=== PATIENT | male | born 1985 | race Caucasian/White ===

== ENCOUNTER 2018-05-09 15:23 | Inpatient (IN) | payer MEDICARE, MEDICAID ==
[~2018-05-09] VITALS: Ht 160 cm; Wt 70.6 kg
[~2018-05-09 15:23] MED LIST: DIVA500T52 PO; RISP3 PO
[2018-05-09] MEDS ORDERED: CLON.5 PO (16:36)
[2018-05-09] MEDS ORDERED: OLAN2.5T3 PO (16:36)
[2018-05-09 17:02] LABS: BASOPHILS % (AUTO) 0.9 % (0.0-2.0); EOSINOPHILS % (AUTO) 1.3 % (1.0-6.0); HEMATOCRIT 41.7 % (41-53); HEMOGLOBIN 13.9 g/dL (13.5-17.5); LYMPHOCYTES # (AUTO) 1.9 K/uL (1.0-4.8); LYMPHOCYTES % (AUTO) 20.6 % (22.0-44.0); MEAN CORPUSCULAR HEMOGLOBIN 26.8 pg (26.0-34.0); MEAN CORPUSCULAR HGB CONC 33.3 G/dL (31.0-37.0); MEAN CORPUSCULAR VOLUME 80 fL (80-100); MONOCYTES # (AUTO) 0.6 K/uL (0.1-1.0); MONOCYTES % (AUTO) 6.2 % (2.0-9.0); NEUTROPHILS # (AUTO) 6.7 K/uL (1.8-7.7); PLATELET COUNT (AUTO) 397 K/uL (150-450); RED CELL DISTRIBUTION WIDTH 13.8 % (11.5-14.5)
[2018-05-09 17:13] LABS: ANION GAP 18 mmol/L (8-16); CALCIUM, TOTAL 9.2 mg/dL (8.8-10.5); CARBON DIOXIDE 15 mmol/L (22-29); CHLORIDE 109 mmol/L (98-107); CREATININE 0.74 mg/dL (0.60-1.30); GLOMERULAR FILTR. RATE CALC > 60 mL/min (>60); GLUCOSE,RANDOM 81 mg/dL (70-110); POTASSIUM 3.3 mmol/L (3.5-5.1); SODIUM SERUM 142 mmol/L (136-145); UREA NITROGEN, BLOOD 7 mg/dL (7-18)
[2018-05-09 17:20] LABS: ALANINE AMINOTRANSFERASE 52 U/L (12-78); ALKALINE PHOSPHATASE 91 U/L (46-116); ASPARTATE AMINOTRANSFERASE 25 U/L (15-37); BILIRUBIN,TOTAL 0.7 mg/dL (0.1-1.0); TOTAL PROTEIN, SERUM 7.8 g/dL (6.4-8.2)
[2018-05-09] MEDS ORDERED: HALOPERIDOL LACTATE 5 MG/ML VIAL IM ONE (17:45)
[2018-05-09] MEDS ORDERED: DiphenhydrAMINE HCL 50 MG/ML VIAL IM ONE (17:45)
[2018-05-09] MEDS ORDERED: LORazepam 2 MG/ML VIAL IM ONE (17:45)
[2018-05-09] MEDS ORDERED: ZOLPIDEM TARTRATE 10 MG TABLET PO PRN (18:45)
[2018-05-09] MEDS ORDERED: HALOPERIDOL 5 MG TABLET PO PRN (18:45)
[2018-05-09] MEDS ORDERED: LORazepam 2 MG TABLET PO PRN (18:45)
[2018-05-09] MEDS ORDERED: ALBUTEROL SULFATE HFA 90 MCG/PUFF 8 GM INHALER IH PRN (22:15)
[2018-05-09] MEDS ORDERED: POTASSIUM CHLORIDE 20 MEQ ER TABLET PO ONE (22:15)
[2018-05-09] MEDS ORDERED: MAGNESIUM HYDROXIDE SUSPENSION 30 ML UDCUP PO PRN (22:15)
[2018-05-09] MEDS ORDERED: ONDANSETRON HCL 4 MG TABLET PO PRN (22:15)
[2018-05-09] MEDS ORDERED: LOPERAMIDE HCL 2 MG CAPSULE PO PRN (22:15)
[2018-05-09] MEDS ORDERED: MAG HYDROX/AL HYDROX/SIMETH ES 30 ML SUSPENSION UDCUP PO PRN (22:15)
[2018-05-09] MEDS ORDERED: PETROLATUM,WHITE 71 GM JELLY TP PRN (22:15)
[2018-05-09] MEDS ORDERED: ACETAMINOPHEN 325 MG TABLET PO PRN (22:15)
[2018-05-09] MEDS ORDERED: CloNIDine HCL 0.1 MG TABLET PO PRN (22:15)
[2018-05-09] MEDS ORDERED: DOCUSATE SODIUM 100 MG CAPSULE PO PRN (22:15)
[2018-05-09] MEDS ORDERED: GuaiFENesin/D-METHORPHAN [SUGAR-FREE] 200-20MG/10 ML SYRUP UDCUP PO PRN (22:15)
[2018-05-09] MEDS ORDERED: NICOTINE 14 MG/24 HOUR PATCH TD PRN (22:15)
[2018-05-09] MEDS ORDERED: IBUPROFEN 400 MG TABLET PO PRN (22:15)
[2018-05-10 06:33] VITALS: BP 129/70
[2018-05-10 08:02] VITALS: BP 118/69
[2018-05-10 16:02] VITALS: BP 125/83
[2018-05-10] MEDS: OLANZapine 5 MG TABLET PO SCH (16:52)
[2018-05-11 06:28] VITALS: BP 128/72
[2018-05-11] MEDS: OLANZapine 5 MG TABLET PO SCH ×2 (08:16→16:15)
[2018-05-11] MEDS: FLUoxetine HCL 20 MG CAPSULE PO SCH (08:16)
[2018-05-11 08:36] VITALS: BP 105/78
[2018-05-11 17:26] VITALS: BP 112/72
[2018-05-12 06:21] VITALS: BP 122/80
[2018-05-12 08:34] VITALS: BP 123/73
[2018-05-12] MEDS: FLUoxetine HCL 20 MG CAPSULE PO SCH ×2 (08:57→09:07)
[2018-05-12] MEDS: OLANZapine 5 MG TABLET PO SCH ×4 (08:58→17:11)
[2018-05-12 16:06] VITALS: BP 116/59
[2018-05-13 05:55] VITALS: BP 114/78
[2018-05-13 08:02] VITALS: BP 125/75
[2018-05-13] MEDS: OLANZapine 5 MG TABLET PO SCH (09:00)
[2018-05-13] MEDS: FLUoxetine HCL 20 MG CAPSULE PO SCH (09:00)
[2018-05-13 16:08] VITALS: BP 139/89
[2018-05-13] MEDS: OLANZapine 7.5 MG TABLET PO SCH (17:00)
[2018-05-14 05:46] VITALS: BP 135/92
[2018-05-14 08:04] VITALS: BP 116/71
[2018-05-14] MEDS: OLANZapine 7.5 MG TABLET PO SCH ×2 (08:35→17:00)
[2018-05-14] MEDS: FLUoxetine HCL 20 MG CAPSULE PO SCH (08:35)
[2018-05-14 16:00] VITALS: BP 119/80
[2018-05-15 06:18] VITALS: BP 114/72
[2018-05-15 06:22] VITALS: BP 116/78
[2018-05-15 08:01] VITALS: BP 118/72
[2018-05-15] MEDS: OLANZapine 7.5 MG TABLET PO SCH (08:13)
[2018-05-15] MEDS: FLUoxetine HCL 20 MG CAPSULE PO SCH (08:13)
[2018-05-15] MEDS ORDERED: OLAN7.5T2 PO (12:55)
[2018-05-15] MEDS ORDERED: FLUO-191 PO (12:55)
== END 2018-05-15 13:50 | disposition home or self-care (01) | DRG 885 ==
LOC: EMS 15:24 → B3A 20:16
PROVIDERS: ADMIT Psychiatry & Neurology Psychiatry; ATTEND Psychiatry & Neurology Psychiatry
DX: F25.0 Schizoaffective disorder, bipolar type (principal); R45.851 Suicidal ideations; E03.9 Hypothyroidism, unspecified; E87.6 Hypokalemia; F17.210 Nicotine dependence, cigarettes, uncomplicated; F19.90 Other psychoactive substance use, unspecified, uncomplicated; F41.9 Anxiety disorder, unspecified; Z89.612 Acquired absence of left leg above knee; Z91.14 Patient's other noncompliance with medication regimen; Z91.19 Patient's noncompliance with other medical treatment and regimen; Z91.5 Personal history of self-harm
CPT/HCPCS: G0480